=== PATIENT | female | born 1955 | race Caucasian/White ===

== ENCOUNTER 2019-07-21 01:48 | Outpatient (RCR) | payer OTHER, SELFPAY | END 2019-10-19 23:59 | disposition home or self-care (01) | LOC: ANHDMC 01:48 | PROVIDERS: PCP Family Medicine; Visit Provider Family Medicine | DX: R73.09 Other abnormal glucose (principal); Z71.89 Other specified counseling | CPT/HCPCS: 99199 ==

== ENCOUNTER 2020-02-15 14:01 | Outpatient (CLI) | payer OTHER, SELFPAY ==
--- NOTE | ~2020-02-15 | CT_ITS ---
EXAMINATION: CT lung screening DATE: 02/15/2020 15:37 INDICATION: Personal history of tobacco dependence, current smoker with 30 pack year history TECHNIQUE: Computed tomography (CT) of the chest was performed without intravenous contrast. The dose -length product (DLP) was 101.30 mGy-cm. Automated exposure control and iterative reconstruction tech [employer] were employed. COMPARISON: 11/06/2006 FINDINGS: Mild emphysema is noted. A 3 mm nodule in association with the minor fissure has the appear ance of a fissural lymph node. No suspicious pulmonary nodule is identified. There is no pleural effu kendra or pneumothorax. No pathologically enlarged thoracic lymph nodes are identified. The heart size is normal. A chronic sclerotic lesion is noted in the T9 vertebral body, unchanged since 2006. IMPRESSION: 1. Lung-RADS category 2: Benign appearance or behavior. Continue annual screening with noncontrast lo w-dose chest CT in 12 months. Reviewed, dictated and finalized at location A. IMPRESSION: 1. Lung-RADS category 2: Benign appearance or behavior. Continue annual screeni ng with noncontrast low-dose chest CT in 12 months.
--- NOTE | 2020-02-15 14:08 | ECHO_ITS ---
Patient Info Name: Seda Miramontes Age: 64 years : 1955 Gender: Female Ht: 63 in Wt: 190 lbs BSA: 1.99 m2 HR: 90 bpm BP: 129 / 96 mmHg Technical Quality: Good Exam Date: 02/15/2020 2:19 PM Exam Location: [facility] Patient Status: Outpatient Admit Date: 02/15/2020 Staff Ordering Physician: Chula Wray MD Manager Engagement: Presley Henderson, CHRIS, RT Attending Provider: Chula Wray MD Referring Physician: Kamala ROCA; Exam Type: CA echo doppler color flow Study Info Indications R06.02 - Shortness of breath Complete two-dimensional, color flow and Doppler transthoracic echocardiogram is performed. Summary 1. Left ventricular chamber dimension is normal. 2. Left ventricular systolic function is normal, estimated at 65-70%. 3. There is mildly increased left ventricular wall thickness. 4. The left ventricular diastolic function is grade I diastolic dysfunction. 5. E/e' 7 is not elevated. 6. Global longitudinal strain is slightly abnormal at -16.6%. 7. There is trace mitral valve regurgitation. Left Ventricle E/e' 7 is not elevated. Global longitudinal strain is slightly abnormal at -16.6%. Left ventricular chamber dimension is normal. Left ventricular systolic function is normal, estimated at 65-70%. There is mildly increased left ventricular wall thickness. The left ventricular diastolic function is grade I diastolic dysfunction. Right Ventricle Right ventricular chamber dimension is normal. Right ventricular systolic function is normal. Left Atria Left atrial chamber dimension is normal. Right Atria Right atrial chamber dimension is normal. Aortic Valve The aortic valve is trileaflet. There is no aortic valve stenosis. There is no aortic valve regurgitation. Pulmonic Valve There is no pulmonic regurgitation. Mitral Valve There is no mitral valve stenosis. There is trace mitral valve regurgitation. Tricuspid Valve There is no tricuspid valve regurgitation. Pericardium/Pleural There is no pericardial effusion. Inferior Vena Cava Normal inferior vena cava with >50% collapse upon inspiration consistent with normal right atrial pressure, 5 mmHg. Aorta The aortic root size at the sinus of Valsalva is normal. Left Ventricular Outflow Tract Name Value Normal LVOT 2D LVOT Diameter 1.9 cm LVOT Doppler LVOT Peak Gradient 5 mmHg LVOT Mean Gradient 3 mmHg LVOT VTI 19 cm LVOT VTI/AV VTI Ratio 1.0 LVOT Stroke Volume 52 ml LVOT CO 5.1 l/min LVOT CI 2.6 l/min/m2 Mitral Valve Name Value Normal MV Doppler MV Decel [place] 318 cm/s2 MV PHT 59 ms
--- NOTE | 2020-02-23 11:32 | WPDSIXMINUTE ---
Six Minute Walk Six Minute Walk: The patients O2 sats started at 96% and dropped as low as 93% Total walk distance 335.28 meters conclusion: This patient does not qualify for home oxygen therapy
== END 2020-02-15 14:02 | disposition home or self-care (01) ==
PROVIDERS: PCP Family Medicine; Visit Provider Internal Medicine Critical Care Medicine
DX: R06.02 Shortness of breath (principal); Z87.891 Personal history of nicotine dependence
CPT/HCPCS: 93306; 94618; G0297

== ENCOUNTER 2021-06-07 00:12 | Day surgery (SDC) | payer OTHER, SELFPAY ==
[2021-05-22 10:07] VITALS: BMI 33.7
--- NOTE | 2021-06-06 13:54 | PM.HPGS ---
History of Present Illness History of Present Illness Consent: Risks, benefits, and alternatives have been discussed and questions answered. Patient agrees to proceed with procedure. Chief complaint: neoplasm screening Narrative: Seda Miramontes is a 66 year old female Referred for colon cancer screening. Review of Systems Review of Systems: All systems reviewed & are unremarkable except as noted in HPI and below PMFSH Past Medical History Medical History COPD (chronic obstructive pulmonary disease) Depression Depression Essential tremor GERD (gastroesophageal reflux disease) History of tobacco abuse Hyperlipidemia Hypertension Prediabetes Rheumatoid arthritis involving both hands with negative rheumatoid factor (~2018) Shortness of Breath Thalassemia minor Tonsil stone Surgical History Surgical History H/O section H/O hernia repair H/O partial thyroidectomy Family History Family History Father Hypertension Dementia Diabetes mellitus Malignant neoplasm of prostate Grandparent CHF (congestive heart failure) Pancreatic cancer Emphysema lung Diabetes mellitus Mother Uterine cancer Dementia Macular degeneration Mother Family history of osteoporosis Family history of malignant neoplasm of uterus Family history of malignant neoplasm of ovary Father Hypertension Family history of diabetes mellitus in first degree relative Malignant neoplasm of prostate Diabetes mellitus Grandparent Family history of pancreatic cancer Family history of emphysema Diabetes mellitus Other Family history of cardiovascular disease Social History Social History Smoking packs per day: 1 Smoking cigarettes per day: 20.0 Years smoked: 35 Smoking pack-years: 35.00 Smoking status: Current every day smoker Tobacco type: cigarettes Smoking end date: 10/30/19 Alcohol intake: never Living arrangements: with family Spiritual care concerns: No Meds Home Medications and Allergies Home Medications Medication Instructions Recorded Confirmed Type albuterol sulfate 90 mcg/actuation 2 puff INHALATION Q4H PRN gm 07/20/19 06/07/21 History aerosol inhaler meclizine 12.5 mg tablet See Rx Instructions PO TID PRN #30 06/19/20 06/07/21 Rx tablet budesonide-formoterol HFA 160 2 puff INHALATION Q12H 90 Days 09/04/20 06/07/21 Rx mcg-4.5 mcg/actuation aerosol #30.6 g inhaler atorvastatin 20 mg tablet See Rx Instructions .ROUTE 01/22/21 06/07/21 Rx .COMPLEX #90 tablet cetirizine 10 mg tablet 10 mg PO DAILY PRN 02/08/21 06/07/21 History cholecalciferol (vitamin D3) 125 125 mcg PO DAILY 02/08/21 06/07/21 History mcg (5,000 unit) capsule docusate sodium 100 mg capsule 100 mg PO Q48H cap 02/08/21 06/07/21 History metformin 500 mg tablet 500 mg PO DAILY #90 tablet 03/25/21 06/07/21 Rx omeprazole 20 mg capsule,delayed 20 mg PO BID #180 cap 03/25/21 06/07/21 Rx release propranolol 40 mg tablet 40 mg PO Q12H #180 tablet 04/19/21 06/07/21 Rx bupropion HCl 150 mg PO BID 05/22/21 06/07/21 History duloxetine [Cymbalta] 60 mg PO DAILY 05/22/21 06/07/21 History multivitamin 1 tablet PO DAILY 05/22/21 06/07/21 History losartan 100 mg tablet 100 mg PO DAILY #90 tablet 05/24/21 06/07/21 Rx prednisone 20 mg tablet 20 mg PO BID #10 tablet 05/28/21 06/07/21 Rx Allergies Allergy/AdvReac Type Severity Reaction Status Date / Time Penicillins Allergy Unknown ? Verified 06/07/21 11:21 CHILD---???REACTION Exam Resp: Auscultation: clear to auscultation bilaterally Cardio: Rate: regular rate Rhythm: regular rhythm GI: GI Palp: Yes Soft to palpation and No Tenderness to palpation present (GI) Assessment and Plan Assessment and plan (1) Encounter for screening
[2021-06-07 11:27] VITALS: BP 126/82; PULSE 84; RESP 16; O2SAT 97
[2021-06-07] MEDS: LACTATED RINGERS 1,000 ML 150 ML IV CONT (11:38)
[2021-06-07 11:40] LABS: Glucose Point of Care 112 mg/dl (65-105)
--- NOTE | 2021-06-07 11:42 | WPDANESEPPF ---
Anes - Initial Pre Proc Eval Procedure: Operation Date: 06/07/21 12:30 Proposed Procedures p Screening Colonoscopy - Vickey Billy MD Date/Time: 06/07/21 11:42 Surgeon: Vickey Billy MD Pre Op Diagnosis: neoplasm screening Patient Data Age: 66 Gender: F Height: 1.6 m Weight: 83.4 kg Last Vital Signs Pulse 84 06/07/21 11:27 Resp 16 06/07/21 11:27 BP 126/82 06/07/21 11:27 Pulse Ox 97 06/07/21 11:27 Allergies Allergy/AdvReac Type Severity Reaction Status Date / Time Penicillins Allergy Unknown ? Verified 06/07/21 11:21 CHILD---???REACTION Home Medications Medication Instructions Recorded Confirmed Type albuterol sulfate 90 mcg/actuation 2 puff INHALATION Q4H PRN gm 07/20/19 06/07/21 History aerosol inhaler meclizine 12.5 mg tablet See Rx Instructions PO TID PRN #30 06/19/20 06/07/21 Rx tablet budesonide-formoterol HFA 160 2 puff INHALATION Q12H 90 Days 09/04/20 06/07/21 Rx mcg-4.5 mcg/actuation aerosol #30.6 g inhaler atorvastatin 20 mg tablet See Rx Instructions .ROUTE 01/22/21 06/07/21 Rx .COMPLEX #90 tablet cetirizine 10 mg tablet 10 mg PO DAILY PRN 02/08/21 06/07/21 History cholecalciferol (vitamin D3) 125 125 mcg PO DAILY 02/08/21 06/07/21 History mcg (5,000 unit) capsule docusate sodium 100 mg capsule 100 mg PO Q48H cap 02/08/21 06/07/21 History metformin 500 mg tablet 500 mg PO DAILY #90 tablet 03/25/21 06/07/21 Rx omeprazole 20 mg capsule,delayed 20 mg PO BID #180 cap 03/25/21 06/07/21 Rx release propranolol 40 mg tablet 40 mg PO Q12H #180 tablet 04/19/21 06/07/21 Rx bupropion HCl 150 mg PO BID 05/22/21 06/07/21 History duloxetine [Cymbalta] 60 mg PO DAILY 05/22/21 06/07/21 History multivitamin 1 tablet PO DAILY 05/22/21 06/07/21 History losartan 100 mg tablet 100 mg PO DAILY #90 tablet 05/24/21 06/07/21 Rx prednisone 20 mg tablet 20 mg PO BID #10 tablet 05/28/21 06/07/21 Rx Laboratory Tests 06/07/21 11:35 POC Capillary Glucose 112 mg/dl H mg/dl (65-105) Patient hx anesthesia problems: none Family hx anesthesia problems: none Results Review: All pre-operative results and documents have been reviewed as part of the pre-operative evaluation. [facility] Past Medical History Medical History COPD (chronic obstructive pulmonary disease) Depression Depression Essential tremor GERD (gastroesophageal reflux disease) History of tobacco abuse Hyperlipidemia Hypertension Prediabetes Rheumatoid arthritis involving both hands with negative rheumatoid factor (~2018) Shortness of Breath Thalassemia minor Tonsil stone Surgical History Surgical History H/O section H/O hernia repair H/O partial thyroidectomy Family History Family History Father Hypertension Dementia Diabetes mellitus Malignant neoplasm of prostate Grandparent CHF (congestive heart failure) Pancreatic cancer Emphysema lung Diabetes mellitus Mother Uterine cancer Dementia Macular degeneration Mother Family history of osteoporosis Family history of malignant neoplasm of uterus Family history of malignant neoplasm of ovary Father Hypertension Family history of diabetes mellitus in first degree relative Malignant neoplasm of prostate Diabetes mellitus Grandparent Family history of pancreatic cancer Family history of emphysema Diabetes mellitus Other Family history of cardiovascular disease Social History Social History Smoking packs per day: 1 Smoking cigarettes per day: 20.0 Years smoked: 35 Smoking pack-years: 35.00 Smoking status: Current every day smoker Tobacco type: cigarettes Smoking end date: 10/30/19 Alcohol intake: never Living arrangements: with family Spiritual care concerns: No
[2021-06-07 12:31] VITALS: BP 109/64; PULSE 73; RESP 22; O2SAT 97
[2021-06-07 12:41] VITALS: BP 107/68; PULSE 68; RESP 17; O2SAT 98
[2021-06-07 12:51] VITALS: BP 122/72; PULSE 62; RESP 16; O2SAT 98
== END 2021-06-07 13:25 | disposition home or self-care (01) ==
PROVIDERS: PCP Nurse Practitioner Family; Visit Provider Internal Medicine Gastroenterology
PROC: 0DJD8ZZ Inspection of Lower Intestinal Tract, Via Natural or Artificial Opening Endoscopic (ICD-10-PCS; CPT 45378; principal; 2021-06-07 12:30)
DX: Z12.11 Encounter for screening for malignant neoplasm of colon (principal); K64.8 Other hemorrhoids; K57.30 Diverticulosis of large intestine without perforation or abscess without bleeding; K63.5 Polyp of colon; Z79.51 Long term (current) use of inhaled steroids; J44.9 Chronic obstructive pulmonary disease, unspecified; F32.9 Major depressive disorder, single episode, unspecified; G25.0 Essential tremor; K21.9 Gastro-esophageal reflux disease without esophagitis; E78.49 Other hyperlipidemia; I10 Essential (primary) hypertension; R73.03 Prediabetes; M06.842 Other specified rheumatoid arthritis, left hand; M06.841 Other specified rheumatoid arthritis, right hand; D56.3 Thalassemia minor; F17.210 Nicotine dependence, cigarettes, uncomplicated; E66.9 Obesity, unspecified; Z68.30 Body mass index [BMI] 30.0-30.9, adult
CPT/HCPCS: 45385; 82948; 88305; J2704; J7120

== ENCOUNTER 2021-08-20 16:44 | Emergency (ER) | payer OTHER, SELFPAY ==
--- NOTE | ~2021-08-20 | XR_ITS ---
EXAMINATION: XR chest 2V DATE: 08/20/2021 17:35 INDICATION: 5 days of cough and shortness of breath TECHNIQUE: PA and lateral views of the chest were obtained. COMPARISON: Chest radiograph dated 10/21/[address] dated 02/15/2020 FINDINGS: Unchanged mild linear atelectasis/scarring at the bilateral lung bases. No new airspace opacities, pu lmonary edema, pleural effusion or pneumothorax. Heart size is normal. Tortuous thoracic aorta. Mild thoracic spondylosis. IMPRESSION: 1. Chronic mild bibasilar atelectasis/scarring. Reviewed, dictated and finalized at location H. ER OUT
--- NOTE | 2021-08-20 16:48 | ED.URI ---
HPI - URI/Sore Throat General Chief Complaint: Upper Respiratory Infection Stated Complaint: Congestion,Cough Time Seen by Provider: 08/20/21 17:25 Source: patient and RN notes reviewed Mode of arrival: ambulatory Limitations: no limitations History of Present Illness HPI Narrative: 66-year-old female with history of COPD and hypertension presents with concern for worsening cough and shortness of breath. Reports she has had cough, shortness of breath and wheezing that started 6 days ago. Reports she saw her primary care doctor who put her on a Z-Jasvir and a steroid. Reports she finished those today, however symptoms continue to get worse instead of better. Reports she usually feels better after 3 days on a steroid, however her symptoms are worsening. She has been vaccinated for Covid and flu, including Covid booster. She denies any known Covid or flu exposure. MD elicited complaint: cough Related Data Home Medications Medication Instructions Recorded Confirmed albuterol sulfate 90 mcg/actuation 2 puff INHALATION Q4H PRN gm 07/20/19 08/16/21 aerosol inhaler cetirizine 10 mg tablet 10 mg PO DAILY PRN 02/08/21 08/16/21 cholecalciferol (vitamin D3) 125 125 mcg PO DAILY 02/08/21 08/16/21 mcg (5,000 unit) capsule docusate sodium 100 mg capsule 100 mg PO Q48H cap 02/08/21 08/16/21 bupropion HCl 150 mg PO BID 05/22/21 08/16/21 multivitamin 1 tablet PO DAILY 05/22/21 08/16/21 Allergies Allergy/AdvReac Type Severity Reaction Status Date / Time Penicillins Allergy Unknown ? Verified 08/16/21 09:28 CHILD---???REACTION Review of Systems Review of Systems: CONSTITUTIONAL: Reports malaise. Chills, sweats, or fever. EYES: Denies visual changes, redness, or discharge. ENT: Denies rhinorrhea, congestion. Denies sinus pain, otalgia and sore throat. CARDIOVASCULAR: Denies chest pain, palpitations, or edema. RESPIRATORY: Reports cough, wheezing, dyspnea. GASTROINTESTINAL: Denies abdominal pain, nausea, vomiting, diarrhea SKIN: Denies rash or itching. MUSCULOSKELETAL: Denies myalgia. NEUROLOGIC: Denies headache. All systems reviewed & are unremarkable except as noted in HPI and below PMFSH Past Medical History Medical History COPD (chronic obstructive pulmonary disease) Depression Depression Essential tremor GERD (gastroesophageal reflux disease) History of tobacco abuse Hyperlipidemia Hypertension Prediabetes Rheumatoid arthritis involving both hands with negative rheumatoid factor (~2018) Shortness of Breath Thalassemia minor Tonsil stone Surgical History Surgical History H/O section H/O hernia repair H/O partial thyroidectomy Family History Family History Father Hypertension Dementia Diabetes mellitus Malignant neoplasm of prostate Grandparent CHF (congestive heart failure) Pancreatic cancer Emphysema lung Diabetes mellitus Mother Uterine cancer Dementia Macular degeneration Mother Family history of osteoporosis Family history of malignant neoplasm of uterus Family history of malignant neoplasm of ovary Father Hypertension Family history of diabetes mellitus in first degree relative Malignant neoplasm of prostate Diabetes mellitus Grandparent Family history of pancreatic cancer Family history of emphysema Diabetes mellitus Other Family history of cardiovascular disease Social History Social History Smoking packs per day: 1 Smoking cigarettes per day: 20.0 Years smoked: 35 Smoking pack-years: 35.00 Smoking status: Current every day smoker Tobacco type: cigarettes Smoking end date: 10/30/19 Alcohol intake: never Spiritual care concerns: No Comments At time of signature, agree with nursing past medical, surgical, social and famil
[2021-08-20 16:50] VITALS: BP 143/91; PULSE 92; RESP 20; TEMP 36.1; O2SAT 96
== END 2021-08-20 18:08 | disposition home or self-care (01) ==
PROVIDERS: Emergency Provider Nurse Practitioner; PCP Nurse Practitioner Family
DX: R06.00 Dyspnea, unspecified (principal); Z20.822 Contact with and (suspected) exposure to COVID-19; F17.210 Nicotine dependence, cigarettes, uncomplicated; J44.9 Chronic obstructive pulmonary disease, unspecified; K21.9 Gastro-esophageal reflux disease without esophagitis; E78.5 Hyperlipidemia, unspecified; I10 Essential (primary) hypertension; R73.03 Prediabetes; M06.9 Rheumatoid arthritis, unspecified; D56.3 Thalassemia minor; F32.A Depression, unspecified
CPT/HCPCS: 71046; 87426; 87804; 99213; C9803; G0463

== ENCOUNTER → 2023-01-12 12:05 | Outpatient (CLI) | payer OTHER, SELFPAY ==
--- NOTE | ~2023-01-12 | XR_ITS ---
XR chest 2V 01/12/2023 12:16 Indication: Cough Procedure: 2 view chest Comparison: Comparison to multiple prior studies sequentially, with oldest reviewed study dated 07/01. Findings: Bibasilar atelectasis. Heart size normal. No focal air space disease, pulmonary edema, pleu ral effusion or suspected pneumothorax. No acute osseous abnormality. Impression: 1: Bibasilar atelectasis. Reviewed, dictated and finalized at location B. Impression: 1: Bibasilar atelectasis.
== END ==
PROVIDERS: PCP Family Medicine; Visit Provider Nurse Practitioner Family
DX: J98.11 Atelectasis (principal)
CPT/HCPCS: 71046

== ENCOUNTER 2023-03-26 11:37 | Outpatient (CLI) | payer OTHER, SELFPAY ==
[2023-03-26 13:26] LABS: Uric Acid 4.6 mg/dL (2.5-7.5)
== END 2023-03-26 11:38 | disposition home or self-care (01) ==
LOC: ANHGOSHLAB 11:38
PROVIDERS: PCP Family Medicine; Visit Provider Nurse Practitioner Family
DX: E78.5 Hyperlipidemia, unspecified (principal); R73.03 Prediabetes; F32.A Depression, unspecified; E55.9 Vitamin D deficiency, unspecified; I10 Essential (primary) hypertension; M10.9 Gout, unspecified
CPT/HCPCS: 36415; 84550

== ENCOUNTER → 2023-06-23 11:48 | Outpatient (CLI) | payer OTHER, SELFPAY ==
--- NOTE | ~2023-06-23 | XR_ITS ---
EXAMINATION: XR chest 2V 06/23/2023 12:02 INDICATION: Cough and shortness of breath PROCEDURE: 2 view chest COMPARISON: Comparison to multiple prior studies sequentially, with oldest reviewed study dated 03/25. FINDINGS: The lungs are clear. The cardiomediastinal silhouette is within normal limits. There are no pleural effusions. There is no pneumothorax suspected. There is atherosclerosis and ectasia of t he aorta. IMPRESSION: 1: NO ACUTE CARDIOPULMONARY DISEASE. Reviewed, dictated and finalized at location L.
== END ==
PROVIDERS: PCP Nurse Practitioner; Visit Provider Nurse Practitioner
DX: R06.02 Shortness of breath (principal); R05.9 Cough, unspecified
CPT/HCPCS: 71046

== ENCOUNTER 2023-07-09 10:52 | Inpatient (IN) | payer MEDICARE, OTHER, SELFPAY ==
[2023-07-09] VITALS (29 sets, daily range): BP systolic 118–149; BP diastolic 73–95; PULSE 86–104; RESP 13–27; TEMP 36.4–36.9; O2SAT 91–99; BMI 34.0
--- NOTE | ~2023-07-09 | XR_ITS ---
EXAMINATION: XR chest 1V portable INDICATION: Cough and shortness of breath TECHNIQUE: Portable AP chest at 1224 hours COMPARISON: 06/23/2023 FINDINGS: There are minimal airspace opacities of the left midlung zone. No pleural effusion or pneum othorax. The cardiomediastinal silhouette is stable. IMPRESSION: 1. Minimal airspace opacities of the left midlung zone, likely atelectasis. Reviewed, dictated and finalized at location L. RNAL COMMUNICATIONS WRITER
[2023-07-09] MEDS: ALBUTEROL SULFATE NEB 2.5 MG/3 ML INH 15 MG INHALATION (11:42)
[2023-07-09] MEDS: IPRATROPIUM BR 0.02% INH SOLN 0.5 MG/2.5 ML VIAL 1.5 MG INHALATION (11:42)
[2023-07-09 11:54] LABS: Basophils Absolute Auto 0.1 K/mm3 (0.0-0.1); Basophils Percent Auto 0.9 % (0.2-1.2); Eosinophils Absolute Auto 0.4 K/mm3 (0-0.3); Eosinophils Percent Auto 4.8 % (0-4.4); Hematocrit 37.4 % (37.0-47.0); Hemoglobin 11.5 g/dL (12.0-15.0); Immature Granulocyte Absolute 0.04 K/mm3 (0.00-0.031); Immature Granulocyte Percent A 0.4 % (0-0.5); Lymphocytes Absolute Auto 1.53 K/mm3 (0.9-3.2); Lymphocytes Percent Auto 16.9 % (18.3-44.2); Mean Corpuscular HGB Conc 30.7 g/dl (32-36); Mean Corpuscular Hemoglobin 21.1 pg (26-34); Mean Corpuscular Volume 68.6 fl (80-100); Mean Platelet Volume 9.5 fl (7.4-10.4); Monocytes Absolute Auto 0.9 K/mm3 (0.1-0.6); Monocytes Percent Auto 9.9 % (2.6-8.5); Neutrophils Absolute Auto 6.1 K/mm3 (1.3-6.7); Neutrophils Percent Auto 67.1 % (45.5-73.1); Platelet Count Result 288 k/mm3 (150-375); Red Blood Count 5.45 M/mm3 (4.2-5.4); Red Cell Distribution Width 18.5 % (11.5-14.5)
[2023-07-09 12:04] LABS: Alanine Aminotransferase 34 U/L (6-35); Albumin Level 4.3 g/dL (3.5-5.1); Alkaline Phosphatase 96 U/L (38-126); Anion Gap 4 mmol/L (8-16); Aspartate Amino Transferase 35 U/L (14-36); Bilirubin,Total 0.8 mg/dL (0.2-1.3); Blood Urea Nitrogen 19 mg/dL (7-17); Calcium 9.2 mg/dL (8.4-10.2); Carbon Dioxide 31 mmol/L (22-30); Chloride 101 mmol/L (98-107); Estimated CRCL calculation 56 ml/min; Estimated Glomerular Filt Rate > 60; Glucose 95 mg/dL (65-110); Potassium 4.1 mmol/L (3.4-5.0); Sodium 136 mmol/L (137-145)
[2023-07-09 12:11] LABS: Ovalocytes 1+ (NORMAL); Platelet Estimate Adequate (Adequate); Schistocytes None Seen (NORMAL); Target Cells 1+ (NORMAL)
[2023-07-09 12:30] LABS: Influenza A QL RT-PCR Negative (Negative); Influenza B QL RT-PCR Negative (Negative); RSV RNA, RT-PCR Negative (Negative); SARS-CoV-2 RNA PCR Positive (Negative)
--- NOTE | 2023-07-09 13:36 | ED.SOB ---
HPI - SOB/Dyspnea General Chief Complaint: Shortness of Breath/Dyspnea Stated Complaint: CANT BREATH Time Seen by Provider: 07/09/23 11:00 History of Present Illness HPI Narrative: Patient is a 68-year-old female who presents ER with shortness of breath and frequent coughing. Patient reports over the last couple weeks she has had multiple issues with her breathing. She has known COPD. She has been on several rounds of steroids and has also been on a Z-Jasvir. She was around her grandchildren 6 days ago and they had upper respiratory illnesses. Over the last 2 days she has developed body aches with cough and shortness of breath. She had a low-grade fever today. She took a home COVID test which was negative. Related Data Home Medications Medication Instructions Recorded Confirmed albuterol sulfate 90 mcg/actuation 2 puff inhalation Q4H PRN Dyspnea 07/20/19 06/23/23 aerosol inhaler (ProAir HFA) docusate sodium 100 mg capsule 100 mg PO Q48H 02/08/21 06/23/23 (Stool Softener) multivitamin 1 tablet PO DAILY 05/22/21 06/23/23 loratadine 10 mg tablet 10 mg PO DAILY 08/26/22 06/23/23 Allergies Allergy/AdvReac Type Severity Reaction Status Date / Time Penicillins Allergy Unknown unknown- Verified 06/23/23 11:15 allergic since childhood Review of Systems Review of Systems: All systems reviewed & are unremarkable except as noted in HPI and below Constitutional: Constitutional: Denies chills, Reports fatigue and Reports fever(s) ENT: Denies nasal congestion and Reports sore throat Cardiovascular: Cardiovascular: Reports no additional cardiovascular complaints Respiratory: Respiratory: Reports cough, Reports dyspnea and Reports wheezing Gastrointestinal: Gastrointestinal: Reports no additional gastrointestinal complaints Genitourinary: Genitourinary: Reports no additional female genitourinary complaints [facility] Past Medical History Medical History Allergies Anxiety Arthritis Arthritis of right acromioclavicular joint COPD (chronic obstructive pulmonary disease) Depression Essential tremor GERD (gastroesophageal reflux disease) Hyperlipidemia Hypertension Prediabetes Rheumatoid arthritis involving both hands with negative rheumatoid factor (~2018) Shortness of Breath Subacromial impingement of right shoulder Thalassemia Thalassemia minor Tonsil stone Surgical History Surgical History H/O section H/O hernia repair H/O partial thyroidectomy Family History Family History Father Hypertension Dementia Diabetes mellitus Grandparent CHF (congestive heart failure) Pancreatic cancer Emphysema lung Diabetes mellitus Mother Uterine cancer Dementia Macular degeneration Mother Family history of osteoporosis Family history of malignant neoplasm of uterus Family history of malignant neoplasm of ovary Father Family history of diabetes mellitus in first degree relative Malignant neoplasm of prostate Diabetes mellitus Cerebrovascular accident Grandparent Family history of pancreatic cancer Family history of emphysema Diabetes mellitus Other Family history of cardiovascular disease Social History Social History Social History: Caffeine-tea Smoking packs per day: 1 Smoking cigarettes per day: 20.0 Years smoked: 40 Smoking pack-years: 40.00 Smoking status: Current every day smoker Tobacco type: cigarettes Alcohol intake: current Alcohol use details: rarely-wine Substance use: never Substance use type: does not use Lack of Transportation: No Lack of Food: Never True Current Housing: I Have Housing Concerned About Future Housing: No Difficulty Paying Gas/Electric Bills: No Difficulty Paying for Meds: No Current
--- NOTE | 2023-07-09 13:39 | PC.NURSE ---
pt ambulated with without assistance and O2 sat. dropped to 89% while walking on room air. no further orders at this time
--- NOTE | 2023-07-09 16:39 | PM.IMHP ---
H&P: HPI History of Present Illness Date/Time: 07/09/23 16:39 Chief Complaint: Cough, SOB Narrative: 68 y/o F presents here with SOB and cough with PMH of COPD, current smoker, deppres/anx, essential tremor, GERD, HTN, HLD, RA, and thalassemia. Patient reports that 2 days ago she began experiencing coughingand mild shortness of breath, symptoms not consistent with her typical COPD exacerbation (sputum production). States that the coughing episodes would last so long that she would become very short of breath. Shortness of breath worsened today, having difficult time tolerating activity. Also developed low-grade fever, body aches, and cough is dry. Mild body aches primarily and shoulders that exists exasperated by coughing. Denies nausea, vomiting, diarrhea. Family members who work in healthcare had 6 children, family and patient have been testing for COVID and had been negative up until the patient tested positive today. Patient currently still smokes, 0.5 ppd for approximately 30 years. Is considering cessation. Last COPD exacerbation approximately 3 weeks ago, was placed on Z-Jasvir and had 2 rounds of oral steroids. Symptoms had completely resolved prior to recent onset of symptoms. Review of Systems Review of Systems: All systems reviewed & are unremarkable except as noted in HPI and below PMFSH Past Medical History Medical History Allergies Anxiety Arthritis Arthritis of right acromioclavicular joint COPD (chronic obstructive pulmonary disease) Depression Essential tremor GERD (gastroesophageal reflux disease) Hyperlipidemia Hypertension Prediabetes Rheumatoid arthritis involving both hands with negative rheumatoid factor (~2018) Shortness of Breath Subacromial impingement of right shoulder Thalassemia Thalassemia minor Tonsil stone Surgical History Surgical History H/O section H/O hernia repair H/O partial thyroidectomy Family History Family History Father Diabetes mellitus Dementia Hypertension Grandparent Pancreatic cancer Diabetes mellitus CHF (congestive heart failure) Emphysema lung Mother Dementia Macular degeneration Uterine cancer Mother Family history of malignant neoplasm of ovary Family history of osteoporosis Family history of malignant neoplasm of uterus Father Malignant neoplasm of prostate Family history of diabetes mellitus in first degree relative Cerebrovascular accident Grandparent Diabetes mellitus Family history of emphysema Family history of pancreatic cancer Other Family history of cardiovascular disease Social History Social History (Updated 07/10/23 @ 00:14 by Olivia Washington APRN) Social History: Caffeine-tea Currently lives at home with her . Surrogate decisionmaker: Nate Miramontes, may also call her daughter Silva Mehta. Code Status: DNR. Smoking packs per day: 0.5 Smoking cigarettes per day: 10.0 Years smoked: 40 Smoking pack-years: 20.00 Smoking status: Current every day smoker Alcohol intake: current Alcohol use details: rarely-wine Substance use: never Substance use type: does not use Other substance usage details: social drinker Lack of Transportation: No Lack of Food: Never True Current Housing: I Have Housing Concerned About Future Housing: No Difficulty Paying Gas/Electric Bills: No Difficulty Paying for Meds: No Currently Unemployed: No Education: High School Diploma/GED Difficulty w/ Childcare or Family Care: No Living arrangements: with family Occupation/Education: retired Gender identity (if verbalized by the patient): Female Spiritual care concerns: No Meds Home Medications and Allergies Home Medications Medication Instructions Recorded Confirmed Type albuterol kendrick
--- NOTE | 2023-07-09 17:42 | ADMGEN ---
This patient, Seda Miramontes, was admitted to 3 [facility] Surg Room 311-01. Patient/family oriented to hospital policies and general routines including ID bracelet, bed and alarms, visiting hours, pain management, procedures, bathroom and other care routines, personal items, smoking policy, room service/diet, and visiting hours. Information on how to activate the Rapid Response Team has been discussed. Patient/Family are encouraged to report perceived risks to care and to ask questions if they do not understand what they are told or what they should do.
[2023-07-09] MEDS: REMDESIVIR 200 MG/NS 250 ML 200 MG/250 ML BAG 250 MG IVPB (21:05)
[2023-07-09] MEDS: amLODIPine BESYLATE 5 MG TABLET PO (21:07)
[2023-07-09] MEDS: LORATADINE 10 MG TABLET PO (21:07)
[2023-07-09] MEDS: ATORVASTATIN 20 MG TABLET PO (21:07)
[2023-07-09] MEDS: HEPARIN SODIUM 5,000 UNITS/ML VIAL 5000 UNITS SUB-Q (21:09)
[2023-07-09] MEDS: PROPRANOLOL HCL 60 MG CAPSULE CR PO (21:09)
[2023-07-09] MEDS: buPROPion HCL XL (24 HR) 150 MG TABCR PO (21:11)
[2023-07-09] MEDS: DULoxetine HCL 60 MG CAPSULE.DR PO (21:12)
[2023-07-09] MEDS: CHOLECALCIFEROL 1,000 UNITS TABLET 5000 UNITS PO (21:22)
[2023-07-09] MEDS: DOCUSATE SODIUM LIQ 100 MG/10 ML UDC 250 MG PO (21:22)
[2023-07-09] MEDS: ALBUTEROL SULFATE NEB 2.5 MG/3 ML INH INHALATION (22:04)
[2023-07-09] MEDS: IPRATROPIUM BR 0.02% INH SOLN 0.5 MG/2.5 ML VIAL INHALATION (22:04)
[2023-07-10] VITALS (17 sets, daily range): BP systolic 114–148; BP diastolic 65–80; PULSE 77–99; RESP 14–28; TEMP 36–36.8; O2SAT 94–99
[2023-07-10 07:46] LABS: INR 0.9; Prothrombin Time 12.6 Seconds (11.1-14.7)
[2023-07-10 07:47] LABS: Basophils Percent Auto 0.2 % (0.2-1.2); Hematocrit 37.3 % (37.0-47.0); Hemoglobin 11.6 g/dL (12.0-15.0); Immature Granulocyte Absolute 0.02 K/mm3 (0.00-0.031); Immature Granulocyte Percent A 0.3 % (0-0.5); Lymphocytes Absolute Auto 1.34 K/mm3 (0.9-3.2); Lymphocytes Percent Auto 23.3 % (18.3-44.2); Mean Corpuscular HGB Conc 31.1 g/dl (32-36); Mean Corpuscular Hemoglobin 21.1 pg (26-34); Mean Corpuscular Volume 67.7 fl (80-100); Mean Platelet Volume 9.3 fl (7.4-10.4); Monocytes Absolute Auto 0.5 K/mm3 (0.1-0.6); Monocytes Percent Auto 7.8 % (2.6-8.5); Neutrophils Absolute Auto 3.9 K/mm3 (1.3-6.7); Neutrophils Percent Auto 68.4 % (45.5-73.1); Platelet Count Result 313 k/mm3 (150-375); Red Blood Count 5.51 M/mm3 (4.2-5.4); Red Cell Distribution Width 18.3 % (11.5-14.5); White Blood Count 5.7 K/mm3 (4.5-10.0)
[2023-07-10 07:52] LABS: Anion Gap 9 mmol/L (8-16); Blood Urea Nitrogen 17 mg/dL (7-17); Calcium 9.4 mg/dL (8.4-10.2); Carbon Dioxide 27 mmol/L (22-30); Chloride 103 mmol/L (98-107); Estimated CRCL calculation 63 ml/min; Estimated Glomerular Filt Rate > 60; Glucose 110 mg/dL (65-110); Potassium 4.3 mmol/L (3.4-5.0); Sodium 139 mmol/L (137-145)
[2023-07-10] MEDS: BENZONATATE 100 MG CAPSULE PO ×3 (09:01→18:24)
[2023-07-10] MEDS: ACETAMINOPHEN 325 MG TABLET 650 MG PO ×3 (09:03→18:22)
[2023-07-10] MEDS: NICOTINE (*PBKC) 14 MG PATCH 1 PATCH TRANSDERM (09:16)
[2023-07-10 09:26] LABS: Platelet Estimate Adequate (Adequate)
[2023-07-10 09:27] LABS: Ovalocytes 1+ (NORMAL); Schistocytes None Seen (NORMAL); Target Cells 1+ (NORMAL)
--- NOTE | 2023-07-10 12:17 | PC.NURSE ---
1217 called Zina, patients sister to give update. No answer. left VM
[2023-07-10] MEDS: ALBUTEROL SULFATE NEB 2.5 MG/3 ML INH INHALATION ×3 (13:20→19:52)
[2023-07-10] MEDS: IPRATROPIUM BR 0.02% INH SOLN 0.5 MG/2.5 ML VIAL INHALATION ×3 (13:20→19:52)
--- NOTE | 2023-07-10 13:27 | PM.IMPN ---
Progress Note: A&P Assessment and Plan (1) COVID: Code(s): U07.1 - COVID-19 Status: Acute Assessment and Plan: Patient presented with fatigue, shortness of breath, malaise and dry hacking cough. tested positive for COVID on - 07/09 CXR: ?Minimal airspace opacities of the left midlung zone, likely atelectasis. Remdesivir 200 mg IVPB x1 then 100 mg x4 for 5 total doses. Add dexamethasone 6 mg x10 days or until d/c. Patient on nebulizers at home, would benefit from Duo nebs - albuterol/Atrovent Q4H scheduled Tessalon Perles prn (2) Hypoxia: Code(s): R09.02 - Hypoxemia Status: Acute Assessment and Plan: Likely secondary to COVID Continue supplemental oxygen, wean as as tolerated. Nebulizers - Atrovent and albuterol q.4 (3) Hypertension: Qualifiers: Hypertension type: essential hypertension Qualified Code(s): I10 - Essential (primary) hypertension Code(s): I10 - Essential (primary) hypertension Status: Acute Assessment and Plan: Continue losartan, amlodipine, propranolol. Monitor BP. Plan Nicotine patch PRN Subjective Date/time seen: 07/10/23 13:27 Interval history: Patient continues to have shortness of breath and dry cough. While talking to me patient is having some labored breathing and shortness of breath while talking. She does have nebulizers at home and is concerned that she is not getting in and here in the hospital. Have since ordered nebulizer treatments scheduled for her here in the hospital. I think she would highly benefit from them. She will be continued on remdesivir and dexamethasone treatments while in the hospital. Advised nurse to walker and measure oxygen saturation while up. Patient could benefit from a 1-2 L of oxygen. Encourage her to use oxygen if it is put on. Answered all of patient's questions to the best of my ability. Exam Narrative: GENERAL: Comfortable, increased respiratory effort with talking, labored breathing. HENMT: moist mucous membranes EYES: EOM intact b/l NECK: no lymphadenopathy RESPIRATORY: diffuse expiratory wheezes and crackles CARDIO: RRR GI: soft, nontender, bowel sounds present SKIN: no rashes EXTREMITIES: no edema, redness or tenderness Objective Data Vital Signs Vital Signs: Vital Signs - 24 hr 07/09/23 13:56 07/09/23 14:30 07/09/23 14:09 Temperature Pulse Rate 96 Respiratory Rate 22 H Blood Pressure 129/82 Pulse Oximetry 93 92 Oxygen Delivery Room Air 07/09/23 15:04 07/09/23 15:15 07/09/23 15:16 Temperature Pulse Rate 91 92 90 Respiratory Rate 27 H 19 15 Blood Pressure 130/76 Pulse Oximetry 91 94 93 Oxygen Delivery 07/09/23 15:17 07/09/23 15:52 07/09/23 16:00 Temperature Pulse Rate 90 95 95 Respiratory Rate 18 21 H 22 H Blood Pressure Pulse Oximetry 93 92 91 Oxygen Delivery 07/09/23 16:01 07/09/23 16:02 07/09/23 18:16 Temperature Pulse Rate 97 96 Respiratory Rate 27 H 23 H Blood Pressure 128/82 Pulse Oximetry 91 91 Oxygen Delivery Room Air 07/09/23 21:09 07/09/23 20:00 07/09/23 22:07 Temperature 97.6 F Pulse Rate 92 104 H 92 Respiratory Rate 22 H 20 Blood Pressure 118/73 Pulse Oximetry 95 Oxygen Delivery 07/09/23 22:15 07/10/23 00:00 07/09/23 20:15 Temperature 97.4 F L Pulse Rate 93 99 99 Respiratory Rate 20 20 20 Blood Pressure 121/80 Pulse Oximetry 96 96 Oxygen Delivery Room Air 07/10/23 04:00 07/10/23 08:15 07/10/23 08:15 Temperature 97.3 F L Pulse Rate 77 88 88 Respiratory Rate 20 20 20 Blood Pressure 114/70 Pulse Oximetry 96 96 Oxygen Delivery Room Air 07/10/23 08:25 07/10/23 08:58 Temperature 96.8 F L Pulse Rate 92 86 Respiratory Rate 20 20 Blood Pressure 145/78 H Pulse Oximetry 95 Oxygen Delivery Intake/Output Intake/Output: Intake & Output 07/07/23 07/08/23 07/09/23 07/10/23 23:59 23:59 23:59 23:
[2023-07-10] MEDS: buPROPion HCL XL (24 HR) 150 MG TABCR PO (21:44)
[2023-07-10] MEDS: CHOLECALCIFEROL 1,000 UNITS TABLET 5000 UNITS PO (21:44)
[2023-07-10] MEDS: DULoxetine HCL 60 MG CAPSULE.DR PO (21:45)
[2023-07-10] MEDS: amLODIPine BESYLATE 5 MG TABLET PO (21:45)
[2023-07-10] MEDS: HEPARIN SODIUM 5,000 UNITS/ML VIAL 5000 UNITS SUB-Q (21:45)
[2023-07-10] MEDS: LORATADINE 10 MG TABLET PO (21:45)
[2023-07-10] MEDS: ATORVASTATIN 20 MG TABLET PO (21:45)
[2023-07-10] MEDS: REMDESIVIR 100 MG/NS 250 ML 100 MG/250 ML BAG 250 MG IVPB (21:53)
[2023-07-10] MEDS: PROPRANOLOL HCL 60 MG CAPSULE CR PO (21:53)
[2023-07-11] VITALS (20 sets, daily range): BP systolic 107–136; BP diastolic 68–82; PULSE 72–87; RESP 18–26; TEMP 36.2–36.9; O2SAT 92–99
[2023-07-11] MEDS: IPRATROPIUM BR 0.02% INH SOLN 0.5 MG/2.5 ML VIAL INHALATION ×7 (01:05→23:51)
[2023-07-11] MEDS: ALBUTEROL SULFATE NEB 2.5 MG/3 ML INH INHALATION ×7 (01:05→23:51)
[2023-07-11] MEDS: LOSARTAN POTASSIUM 100 MG TABLET PO (09:35)
[2023-07-11] MEDS: ACETAMINOPHEN 325 MG TABLET 650 MG PO ×3 (09:35→17:32)
[2023-07-11] MEDS: PANTOPRAZOLE 40 MG TABLET PO (09:36)
[2023-07-11] MEDS: MULTIVITAMINS THERAPEUTIC TAB (*BKC) 1 TABLET PO (09:36)
[2023-07-11] MEDS: BENZONATATE 100 MG CAPSULE PO ×3 (09:36→17:33)
[2023-07-11] MEDS: NICOTINE (*PBKC) 14 MG PATCH 1 PATCH TRANSDERM (09:41)
--- NOTE | 2023-07-11 14:23 | PM.IMPN ---
Progress Note: A&P Assessment and Plan (1) COVID: Code(s): U07.1 - COVID-19 Status: Acute Assessment and Plan: Patient presented with fatigue, shortness of breath, malaise and dry hacking cough. tested positive for COVID on - 07/09 CXR: ?Minimal airspace opacities of the left midlung zone, likely atelectasis. Remdesivir 200 mg IVPB x1 then 100 mg x4 for 5 total doses. Add dexamethasone 6 mg x10 days or until d/c. Patient on nebulizers at home, would benefit from Duo nebs - albuterol/Atrovent Q4H scheduled Tessalon Perles prn Mucinex scheduled (2) Hypoxia: Code(s): R09.02 - Hypoxemia Status: Acute Assessment and Plan: Likely secondary to COVID Continue supplemental oxygen, wean as as tolerated. Nebulizers - Atrovent and albuterol q.4 (3) Hypertension: Qualifiers: Hypertension type: essential hypertension Qualified Code(s): I10 - Essential (primary) hypertension Code(s): I10 - Essential (primary) hypertension Status: Acute Assessment and Plan: Continue losartan, amlodipine, propranolol. Monitor BP. Plan Nicotine patch PRN Subjective Date/time seen: 07/11/23 14:23 Interval history: patient is breathing much more easily today. She is able to complete sentences without becoming short of breath. Discussed with nurse then she walked patient yesterday and oxygen remained above 90%. She is still short of breath but markedly better than yesterday. Will continue with remdesivir and steroids. Patient is still wheezing with diffuse crackles but much less than yesterday. Will continue to monitor her. Continue with nebulizer treatments. Answered all of patient's questions to the best of my ability. Exam Narrative: GENERAL: Comfortable, no acute distress HENMT: moist mucous membranes EYES: EOM intact b/l NECK: no lymphadenopathy RESPIRATORY: diffuse expiratory wheezes and crackles CARDIO: RRR GI: soft, nontender, bowel sounds present SKIN: no rashes EXTREMITIES: no edema, redness or tenderness Objective Data Vital Signs Vital Signs: Vital Signs - 24 hr 07/10/23 15:59 07/10/23 16:12 07/10/23 18:00 Temperature 98.2 F Pulse Rate 87 86 90 Respiratory Rate 20 18 14 Blood Pressure 148/65 H Pulse Oximetry 95 Oxygen Delivery 07/10/23 19:53 07/10/23 19:56 07/10/23 20:01 Temperature Pulse Rate 83 83 85 Respiratory Rate 18 20 18 Blood Pressure Pulse Oximetry 99 Oxygen Delivery Room Air 07/10/23 20:46 07/10/23 21:53 07/10/23 22:05 Temperature 97.6 F Pulse Rate 86 86 Respiratory Rate 16 Blood Pressure 129/76 Pulse Oximetry 94 Oxygen Delivery Room Air 07/10/23 23:52 07/11/23 01:05 07/11/23 01:15 Temperature 97.4 F L Pulse Rate 92 83 Respiratory Rate 28 H 18 18 Blood Pressure 123/79 Pulse Oximetry 96 Oxygen Delivery 07/11/23 04:00 07/11/23 04:51 07/11/23 04:58 Temperature 97.4 F L Pulse Rate 77 79 82 Respiratory Rate 18 18 18 Blood Pressure 126/78 Pulse Oximetry 92 Oxygen Delivery 07/11/23 07:30 07/11/23 07:30 07/11/23 07:43 Temperature Pulse Rate 73 73 76 Respiratory Rate 18 20 18 Blood Pressure Pulse Oximetry 99 Oxygen Delivery Room Air 07/11/23 08:00 07/11/23 11:25 07/11/23 07:55 Temperature 98.5 F Pulse Rate 82 72 82 Respiratory Rate 20 18 18 Blood Pressure 133/82 Pulse Oximetry 97 Oxygen Delivery 07/11/23 12:00 07/11/23 08:00 Temperature 98.1 F Pulse Rate 79 Respiratory Rate 20 Blood Pressure 107/68 Pulse Oximetry 93 Oxygen Delivery Room Air Intake/Output Intake/Output: Intake & Output 07/08/23 07/09/23 07/10/23 07/11/23 23:59 23:59 23:59 23:59 Intake Total 2540 240 Balance 2540 240 Meds/Results Medications: Active Medications Generic Name Dose Route Start Last Admin Trade Name Freq PRN Reason Stop Dose Admin Acetaminophen 650 mg 07/09/23 14:
[2023-07-11] MEDS: guaiFENesin 600 MG/DEXTROMETHORPHAN 30 MG SR TAB 12 HR 1 TAB PO ×2 (17:32→22:38)
[2023-07-11] MEDS: REMDESIVIR 100 MG/NS 250 ML 100 MG/250 ML BAG 250 MG IVPB (22:36)
[2023-07-11] MEDS: LORATADINE 10 MG TABLET PO (22:37)
[2023-07-11] MEDS: PROPRANOLOL HCL 60 MG CAPSULE CR PO (22:37)
[2023-07-11] MEDS: buPROPion HCL XL (24 HR) 150 MG TABCR PO (22:37)
[2023-07-11] MEDS: ATORVASTATIN 20 MG TABLET PO (22:37)
[2023-07-11] MEDS: DULoxetine HCL 60 MG CAPSULE.DR PO (22:37)
[2023-07-11] MEDS: HEPARIN SODIUM 5,000 UNITS/ML VIAL 5000 UNITS SUB-Q (22:38)
[2023-07-11] MEDS: CHOLECALCIFEROL 1,000 UNITS TABLET 5000 UNITS PO (22:38)
[2023-07-11] MEDS: amLODIPine BESYLATE 5 MG TABLET PO (22:38)
[2023-07-11] MEDS: BENZOCAINE/MENTHOL (*BKC) 18 EA LOZENGE 1 LOZENGE PO (22:44)
[2023-07-12] VITALS (18 sets, daily range): BP systolic 100–132; BP diastolic 63–75; PULSE 73–90; RESP 16–24; TEMP 36–36.9; O2SAT 94–97
[2023-07-12] MEDS: ALBUTEROL SULFATE NEB 2.5 MG/3 ML INH INHALATION ×5 (07:51→23:13)
[2023-07-12] MEDS: IPRATROPIUM BR 0.02% INH SOLN 0.5 MG/2.5 ML VIAL INHALATION ×5 (07:51→23:13)
[2023-07-12 08:02] LABS: INR 0.9; Prothrombin Time 12.3 Seconds (11.1-14.7)
[2023-07-12 08:04] LABS: Alanine Aminotransferase 32 U/L (6-35); Albumin Level 4.4 g/dL (3.5-5.1); Alkaline Phosphatase 82 U/L (38-126); Aspartate Amino Transferase 28 U/L (14-36); Bilirubin,Total 0.7 mg/dL (0.2-1.3)
[2023-07-12] MEDS: HEPARIN SODIUM 5,000 UNITS/ML VIAL 5000 UNITS SUB-Q ×2 (09:07→21:07)
[2023-07-12] MEDS: PANTOPRAZOLE 40 MG TABLET PO (09:07)
[2023-07-12] MEDS: guaiFENesin 600 MG/DEXTROMETHORPHAN 30 MG SR TAB 12 HR 1 TAB PO ×2 (09:07→21:08)
[2023-07-12] MEDS: NICOTINE (*PBKC) 14 MG PATCH 1 PATCH TRANSDERM (09:07)
[2023-07-12] MEDS: LOSARTAN POTASSIUM 100 MG TABLET PO (09:08)
[2023-07-12] MEDS: BENZONATATE 100 MG CAPSULE PO (09:08)
[2023-07-12] MEDS: MULTIVITAMINS THERAPEUTIC TAB (*BKC) 1 TABLET PO (09:08)
--- NOTE | 2023-07-12 11:57 | PM.IMPN ---
Progress Note: A&P Assessment and Plan (1) COVID: Code(s): U07.1 - COVID-19 Status: Acute Assessment and Plan: Patient presented with fatigue, shortness of breath, malaise and dry hacking cough. tested positive for COVID on - 07/09 CXR: ?Minimal airspace opacities of the left midlung zone, likely atelectasis. Remdesivir 200 mg IVPB x1 then 100 mg x4 for 5 total doses. Add dexamethasone 6 mg x10 days or until d/c. Patient on nebulizers at home, would benefit from Duo nebs - albuterol/Atrovent Q4H scheduled Tessalon Perles prn Mucinex scheduled (2) Hypoxia: Code(s): R09.02 - Hypoxemia Status: Acute Assessment and Plan: Likely secondary to COVID Continue supplemental oxygen, wean as as tolerated. Nebulizers - Atrovent and albuterol q.4 (3) Hypertension: Qualifiers: Hypertension type: essential hypertension Qualified Code(s): I10 - Essential (primary) hypertension Code(s): I10 - Essential (primary) hypertension Status: Acute Assessment and Plan: Continue losartan, amlodipine, propranolol. Monitor BP. Plan Nicotine patch PRN Subjective Date/time seen: 07/12/23 11:57 Interval history: Patient continued to have some shortness of breath. I feel as if she would benefit from a full 5 days of remdesivir. This was discussed with the patient. Her breath sounds have improved but she is still wheezing. She has a very dry aggravating cough. Will increase her benzonatate. Exam Narrative: GENERAL: Comfortable, no acute distress HENMT: moist mucous membranes EYES: EOM intact b/l NECK: no lymphadenopathy RESPIRATORY: diffuse expiratory wheezes CARDIO: RRR GI: soft, nontender, bowel sounds present SKIN: no rashes EXTREMITIES: no edema, redness or tenderness Objective Data Vital Signs Vital Signs: Vital Signs - 24 hr 07/11/23 12:00 07/11/23 16:10 07/11/23 16:21 Temperature 98.1 F Pulse Rate 79 74 78 Respiratory Rate 20 18 18 Blood Pressure 107/68 Pulse Oximetry 93 Oxygen Delivery 07/11/23 16:00 07/11/23 19:15 07/11/23 19:16 Temperature 97.4 F L Pulse Rate 87 75 78 Respiratory Rate 20 20 20 Blood Pressure 115/74 Pulse Oximetry 94 99 Oxygen Delivery Room Air 07/11/23 19:22 07/11/23 19:52 07/11/23 22:37 Temperature 97.2 F L Pulse Rate 76 85 85 Respiratory Rate 18 26 H Blood Pressure 136/80 Pulse Oximetry 93 Oxygen Delivery 07/11/23 20:00 07/11/23 23:51 07/12/23 00:00 Temperature Pulse Rate 80 80 Respiratory Rate 20 20 Blood Pressure Pulse Oximetry Oxygen Delivery Room Air 07/12/23 00:00 07/12/23 04:00 07/12/23 07:51 Temperature 96.8 F L 97.8 F Pulse Rate 80 80 Respiratory Rate 24 H 24 H Blood Pressure 121/74 116/70 Pulse Oximetry 95 94 94 Oxygen Delivery Room Air 07/12/23 07:51 07/12/23 08:09 07/12/23 07:54 Temperature 97.3 F L Pulse Rate 80 80 74 Respiratory Rate 20 20 18 Blood Pressure 121/75 Pulse Oximetry 97 Oxygen Delivery 07/12/23 08:00 07/12/23 11:21 07/12/23 11:41 Temperature Pulse Rate 81 81 Respiratory Rate 20 20 Blood Pressure Pulse Oximetry 97 Oxygen Delivery Room Air Intake/Output Intake/Output: Intake & Output 07/09/23 07/10/23 07/11/23 07/12/23 23:59 23:59 23:59 23:59 Intake Total 2540 930 240 Balance 2540 930 240 Meds/Results Medications: Active Medications Generic Name Dose Route Start Last Admin Trade Name Freq PRN Reason Stop Dose Admin Acetaminophen 650 mg 07/09/23 14:02 07/11/23 17:32 Acetaminophen 325 Mg Tablet PO 650 mg Q4H PRN Administration Mild Pain (1-3) or Fever Hydrocodone Bitart/Acetaminophen 1 tab 07/09/23 14:02 Hydrocodone/Acetaminophen (*Crx) 5-325 Mg Tablet PO Q4H PRN Pain Rated 4-6 Albuterol 2.5 mg 07/10/23 16:00 07/12/23 11:18 Albuterol Sulfate Neb 2.5 Mg/3 Ml Inh INHALATION 2.5 mg Q
[2023-07-12] MEDS: BENZONATATE 100 MG CAPSULE 200 MG PO ×2 (12:08→16:47)
[2023-07-12] MEDS: HYDROcodone/acetaminophen (*CRX) 5-325 MG TABLET 1 TAB PO (16:54)
[2023-07-12] MEDS: REMDESIVIR 100 MG/NS 250 ML 100 MG/250 ML BAG 250 MG IVPB (21:04)
[2023-07-12] MEDS: CHOLECALCIFEROL 1,000 UNITS TABLET 5000 UNITS PO (21:08)
[2023-07-12] MEDS: LORATADINE 10 MG TABLET PO (21:08)
[2023-07-12] MEDS: ATORVASTATIN 20 MG TABLET PO (21:08)
[2023-07-12] MEDS: PROPRANOLOL HCL 60 MG CAPSULE CR PO (21:08)
[2023-07-12] MEDS: amLODIPine BESYLATE 5 MG TABLET PO (21:08)
[2023-07-12] MEDS: buPROPion HCL XL (24 HR) 150 MG TABCR PO (21:08)
[2023-07-12] MEDS: DULoxetine HCL 60 MG CAPSULE.DR PO (21:08)
[2023-07-13] VITALS (17 sets, daily range): BP systolic 107–132; BP diastolic 63–85; PULSE 75–86; RESP 16–24; TEMP 35.9–36.6; O2SAT 92–97
[2023-07-13] MEDS: ALBUTEROL SULFATE NEB 2.5 MG/3 ML INH INHALATION ×5 (04:35→23:12)
[2023-07-13] MEDS: IPRATROPIUM BR 0.02% INH SOLN 0.5 MG/2.5 ML VIAL INHALATION ×5 (04:35→23:12)
[2023-07-13] MEDS: HYDROcodone/acetaminophen (*CRX) 5-325 MG TABLET 1 TAB PO ×2 (06:12→17:52)
[2023-07-13] MEDS: guaiFENesin 600 MG/DEXTROMETHORPHAN 30 MG SR TAB 12 HR 1 TAB PO ×2 (09:02→20:20)
[2023-07-13] MEDS: BENZONATATE 100 MG CAPSULE 200 MG PO ×3 (09:02→17:53)
[2023-07-13] MEDS: HEPARIN SODIUM 5,000 UNITS/ML VIAL 5000 UNITS SUB-Q ×2 (09:02→20:20)
[2023-07-13] MEDS: PANTOPRAZOLE 40 MG TABLET PO (09:02)
[2023-07-13] MEDS: MULTIVITAMINS THERAPEUTIC TAB (*BKC) 1 TABLET PO (09:02)
[2023-07-13] MEDS: NICOTINE (*PBKC) 14 MG PATCH 1 PATCH TRANSDERM (09:08)
[2023-07-13] MEDS: LOSARTAN POTASSIUM 100 MG TABLET PO (09:08)
--- NOTE | 2023-07-13 13:20 | PM.IMPN ---
Progress Note: A&P Assessment and Plan (1) COVID: Code(s): U07.1 - COVID-19 Status: Acute Assessment and Plan: Patient presented with fatigue, shortness of breath, malaise and dry hacking cough. tested positive for COVID on - 07/09 CXR: ?Minimal airspace opacities of the left midlung zone, likely atelectasis. Remdesivir 200 mg IVPB x1 then 100 mg x4 for 5 total doses. Add dexamethasone 6 mg x10 days or until d/c. Patient on nebulizers at home, would benefit from Duo nebs - albuterol/Atrovent Q4H scheduled Tessalon Perles prn Mucinex scheduled (2) Hypoxia: Code(s): R09.02 - Hypoxemia Status: Acute Assessment and Plan: Likely secondary to COVID Continue supplemental oxygen, wean as as tolerated. Nebulizers - Atrovent and albuterol q.4 (3) Hypertension: Qualifiers: Hypertension type: essential hypertension Qualified Code(s): I10 - Essential (primary) hypertension Code(s): I10 - Essential (primary) hypertension Status: Acute Assessment and Plan: Continue losartan, amlodipine, propranolol. Monitor BP. Plan Nicotine patch PRN Subjective Date/time seen: 07/13/23 13:20 Interval history: Patient does feel improved today. Will get last dose of remdesivir later tonight. Lungs are still we seen but is much improved. Suspect she will be able to discharge tomorrow after receiving full therapy of remdesivir. Her cough is improved although still present. She is beginning to cough up mucus. She denies any chest pain, nausea, vomiting and fever. Shortness of breath markedly improved. Patient requesting no more labs be drawn. Exam Narrative: GENERAL: Comfortable, no acute distress HENMT: moist mucous membranes EYES: EOM intact b/l NECK: no lymphadenopathy RESPIRATORY: diffuse expiratory wheezes CARDIO: RRR GI: soft, nontender, bowel sounds present SKIN: no rashes EXTREMITIES: no edema, redness or tenderness Objective Data Vital Signs Vital Signs: Vital Signs - 24 hr 07/12/23 15:45 07/12/23 16:03 07/12/23 16:00 Temperature 98.0 F Pulse Rate 90 84 73 Respiratory Rate 20 20 16 Blood Pressure 132/73 Pulse Oximetry 94 Oxygen Delivery 07/12/23 19:42 07/12/23 19:59 07/12/23 21:08 Temperature Pulse Rate 88 87 87 Respiratory Rate 18 18 Blood Pressure Pulse Oximetry Oxygen Delivery 07/12/23 20:00 07/12/23 20:00 07/12/23 23:14 Temperature 98.5 F Pulse Rate 75 82 Respiratory Rate 20 18 Blood Pressure 107/63 Pulse Oximetry 96 Oxygen Delivery Room Air 07/12/23 23:30 07/13/23 00:00 07/13/23 04:35 Temperature 97.3 F L Pulse Rate 83 77 78 Respiratory Rate 18 24 H 18 Blood Pressure 123/77 Pulse Oximetry 97 Oxygen Delivery 07/13/23 05:01 07/13/23 04:00 07/13/23 07:58 Temperature 97.5 F L 96.6 F L Pulse Rate 80 77 75 Respiratory Rate 18 18 16 Blood Pressure 107/66 115/85 Pulse Oximetry 92 96 Oxygen Delivery 07/13/23 07:55 07/13/23 07:55 07/13/23 08:17 Temperature Pulse Rate 78 86 Respiratory Rate 18 18 Blood Pressure Pulse Oximetry 97 Oxygen Delivery Room Air 07/13/23 08:00 07/13/23 12:00 07/13/23 12:47 Temperature 96.9 F L Pulse Rate 86 81 80 Respiratory Rate 18 18 18 Blood Pressure 132/69 Pulse Oximetry 96 94 Oxygen Delivery Room Air Intake/Output Intake/Output: Intake & Output 07/10/23 07/11/23 07/12/23 07/13/23 23:59 23:59 23:59 23:59 Intake Total 2540 930 980 640 Balance 2540 930 980 640 Meds/Results Medications: Active Medications Generic Name Dose Route Start Last Admin Trade Name Freq PRN Reason Stop Dose Admin Acetaminophen 650 mg 07/09/23 14:02 07/11/23 17:32 Acetaminophen 325 Mg Tablet PO 650 mg Q4H PRN Administration Mild Pain (1-3) or Fever Hydrocodone Bitart/Acetaminophen 1 tab 07/09/23 14:02 07/13/23 06:12 Hydrocodone/Acetaminophen (*Crx)
[2023-07-13] MEDS: REMDESIVIR 100 MG/NS 250 ML 100 MG/250 ML BAG 250 MG IVPB (20:17)
[2023-07-13] MEDS: buPROPion HCL XL (24 HR) 150 MG TABCR PO (20:20)
[2023-07-13] MEDS: DULoxetine HCL 60 MG CAPSULE.DR PO (20:20)
[2023-07-13] MEDS: LORATADINE 10 MG TABLET PO (20:20)
[2023-07-13] MEDS: PROPRANOLOL HCL 60 MG CAPSULE CR PO (20:20)
[2023-07-13] MEDS: CHOLECALCIFEROL 1,000 UNITS TABLET 5000 UNITS PO (20:20)
[2023-07-13] MEDS: amLODIPine BESYLATE 5 MG TABLET PO (20:20)
[2023-07-13] MEDS: ATORVASTATIN 20 MG TABLET PO (20:21)
[2023-07-14] VITALS (8 sets, daily range): BP systolic 96–128; BP diastolic 63–86; PULSE 75–87; RESP 16–24; TEMP 35.8–36.6; O2SAT 94–97
[2023-07-14] MEDS: ALBUTEROL SULFATE NEB 2.5 MG/3 ML INH INHALATION ×2 (06:58→11:00)
[2023-07-14] MEDS: IPRATROPIUM BR 0.02% INH SOLN 0.5 MG/2.5 ML VIAL INHALATION ×2 (06:58→11:00)
[2023-07-14 07:56] LABS: Hematocrit 38.2 % (37.0-47.0); Hemoglobin 11.6 g/dL (12.0-15.0); Mean Corpuscular HGB Conc 30.4 g/dl (32-36); Mean Corpuscular Hemoglobin 20.8 pg (26-34); Mean Corpuscular Volume 68.5 fl (80-100); Mean Platelet Volume 9.1 fl (7.4-10.4); Platelet Count Result 354 k/mm3 (150-375); Red Blood Count 5.58 M/mm3 (4.2-5.4); Red Cell Distribution Width 18.5 % (11.5-14.5); White Blood Count 11.6 K/mm3 (4.5-10.0)
[2023-07-14 08:10] LABS: Anion Gap 10 mmol/L (8-16); Blood Urea Nitrogen 28 mg/dL (7-17); Calcium 8.9 mg/dL (8.4-10.2); Carbon Dioxide 26 mmol/L (22-30); Chloride 101 mmol/L (98-107); Estimated CRCL calculation 71 ml/min; Estimated Glomerular Filt Rate > 60; Glucose 90 mg/dL (65-110); Potassium 4.7 mmol/L (3.4-5.0); Sodium 137 mmol/L (137-145)
[2023-07-14] MEDS: NICOTINE (*PBKC) 14 MG PATCH 1 PATCH TRANSDERM (09:11)
[2023-07-14] MEDS: HEPARIN SODIUM 5,000 UNITS/ML VIAL 5000 UNITS SUB-Q (09:12)
[2023-07-14] MEDS: BENZONATATE 100 MG CAPSULE 200 MG PO ×2 (09:12→12:11)
[2023-07-14] MEDS: BENZOCAINE/MENTHOL (*BKC) 18 EA LOZENGE 1 LOZENGE PO (09:12)
[2023-07-14] MEDS: PANTOPRAZOLE 40 MG TABLET PO (09:13)
[2023-07-14] MEDS: guaiFENesin 600 MG/DEXTROMETHORPHAN 30 MG SR TAB 12 HR 1 TAB PO (09:13)
[2023-07-14] MEDS: MULTIVITAMINS THERAPEUTIC TAB (*BKC) 1 TABLET PO (09:13)
[2023-07-14] MEDS: LOSARTAN POTASSIUM 100 MG TABLET PO (09:13)
--- NOTE | 2023-07-14 12:04 | PM.DS ---
DS: Admitting Diagnosis Discharge Date 07/14/23 Admitting Diagnosis COVID-19 DS: Discharge Diagnosis Discharge Diagnosis (1) COVID: Code(s): U07.1 - COVID-19 Status: Acute (2) Hypoxia: Code(s): R09.02 - Hypoxemia Status: Acute (3) Hypertension: Qualifiers: Hypertension type: essential hypertension Qualified Code(s): I10 - Essential (primary) hypertension Code(s): I10 - Essential (primary) hypertension Status: Acute DS: Summary Hospital Course Hospital Course: This is a 68-year-old female with a past medical history of COPD, current smoker, essential tremor, hypertension, hyperlipidemia, RA and thalassemia the present to the ED on 07/09/2023 due to shortness of breath and cough. Patient had been experiencing worsening shortness of breath and cough 2 days prior to contagion although for the past several weeks she has been treated for COPD exacerbation with both prednisone and a Z-Jasvir. After discussing with patient it sounds like she could of had bronchitis or other viral infection leading up to this admission. She had tested for COVID several times prior to admission and they were all negative. In the ED she tested positive for COVID. She still currently smokes half a pack per day for approximately 30 years. She did seem interested in smoking cessation in the information was given to her. she was put on 2 L of oxygen in the ED but soon came off of her oxygen once in her hospital room. Patient maintain O2 saturation above 90 during her hospital stay. She was started on remdesivir and was given 5 doses of this over the course of 5 days. She was also started on dexamethasone and received this while in the hospital. DuoNebs were given q.4 hours. Patient did improve with this treat although she still had lingering cough. This was treated with Tessalon Perles and Mucinex. Patient still has some mild wheezing on discharge day but no longer requiring any oxygen supplementation and she is feeling much better. Encouraged nebulizer treatments at home. I am confident that the patient will do well at home with rest and as needed inhaler treatments. labs and vital signs are stable and she is medically cleared for discharge at this time. Time Spent with Patient Time attestation: Total time spent providing and/or coordinating discharge services: Exam Narrative: GENERAL: Comfortable, no acute distress HENMT: moist mucous membranes EYES: EOM intact b/l NECK: no lymphadenopathy RESPIRATORY: diffuse expiratory wheezes - improving CARDIO: RRR GI: soft, nontender, bowel sounds present SKIN: no rashes EXTREMITIES: no edema, redness or tenderness DS: Data Data Completed and Pending Labs on day of discharge: Labs from last 24 hours 07/14/23 07:48 WBC 11.6 H RBC 5.58 H Hgb 11.6 L Hct 38.2 MCV 68.5 L MCH 20.8 L MCHC 30.4 L RDW 18.5 H Plt Count 354 MPV 9.1 Sodium 137 Potassium 4.7 Chloride 101 Carbon Dioxide 26 Anion Gap 10 BUN 28 H D Creatinine 0.70 Estim Creat Clear Calc 71 Estimated GFR > 60 Glucose 90 Calcium 8.9 Discharge Plan Discharge Attending physician on discharge: Yogesh Chatterjee Discharging Clinician: Shauna Doe Patient Disposition: Home, Self-Care Activity: as tolerated Diet: regular Discharge Instructions: Take all medications as prescribed even if feeling better Remember to stay quarantined until 07/19/23 Wear a mask in public, and stay away from large crowds Eat well balanced meals and stay hydrated Keep active, but do not over do it No running marathons, riding your bike, or any other activity that is not mild If you notice that you are short of breath sit down and take a break Check your SPO2 periodically, if it is low cough and rest, check again in about 15 minutes, if you remain low, you should come back to the hospital If you should experience any chest pain, shortness of breath, temps >10
[2023-07-14] MEDS: HYDROcodone/acetaminophen (*CRX) 5-325 MG TABLET 1 TAB PO (12:13)
== END 2023-07-14 12:50 | disposition home or self-care (01) | DRG 179 ==
LOC: ANHED 11:05 → ANH3MEDSUR 17:12
PROVIDERS: Student in an Organized Health Care Education/Training Program; Admitting Provider Internal Medicine; Emergency Provider Emergency Medicine; PCP Nurse Practitioner; Visit Provider Internal Medicine Critical Care Medicine
DX: U07.1 COVID-19 (principal); J44.9 Chronic obstructive pulmonary disease, unspecified; R09.02 Hypoxemia; I10 Essential (primary) hypertension; D56.3 Thalassemia minor; E78.5 Hyperlipidemia, unspecified; K21.9 Gastro-esophageal reflux disease without esophagitis; M19.011 Primary osteoarthritis, right shoulder; M06.042 Rheumatoid arthritis without rheumatoid factor, left hand; M06.041 Rheumatoid arthritis without rheumatoid factor, right hand; R73.03 Prediabetes; G25.0 Essential tremor; F17.210 Nicotine dependence, cigarettes, uncomplicated; F32.A Depression, unspecified; F41.9 Anxiety disorder, unspecified
CPT/HCPCS: 36415; 71045; 80048; 80053; 80076; 85025; 85027; 85610; 87637; 94640; 96374; 99285; A9270; G0378; J0248; J1100; J1644

== ENCOUNTER 2023-11-17 13:00 | Outpatient (RCR) | payer MEDICARE, OTHER, SELFPAY ==
--- NOTE | 2023-11-09 12:47 | OPREHPOC ---
Outpatient Therapy Plan of Care This is a Multidisciplinary Plan of Care that may contain components documented by all disciplines (PT, OT, and ST.) PT Problem 1 PT Problem #1 Knowledge Deficit PT Goal 1 Goal Pt to be IND with issued HEP Target Visit 6 PT Problem 2 PT Problem #2 Impaired Functional Mobil PT Goal 1 Goal Pt to demonstrate floor to stand transfer without external support Target Visit 6 PT Goal 2 Goal Pt to demonstrate functional lift and carry with 20lb from ground level. Target Visit 6 PT Problem 3 PT Problem #3 Impaired Balance PT Goal 1 Goal Pt to improve single leg stance to 10s rupal Target Visit 6 PT Goal 2 Goal Pt to ambulate stairs without requiring UE support Target Visit 6
--- NOTE | 2023-11-09 12:47 | PTOPEVAL1 ---
Assessment and note entered by Lorrie John, PT, DPT Evaluation Information Assessment Status Evaluation Diagnosis general weakness Onset 6 months Subjective Information Pt reports mid May she experienced an exacerbation of her COPD, she was given a couple of rounds of medication without relief. She ended up getting Covid and was hospitalized for 5 day, stress, sinus infection, and UTI. She states she was basically bed ridden from May to mid Oct. She states now she has extreme weakness in both of her legs since all of this started. She states she feels unsteady on her feet, unsure on stairs, and like her balance has been off since all this started. She states prior to May she was IND, felt great, babysat her young children multiple times a week. She states just in the last couple of weeks she has been getting her energy back. Reported Pain Level Pain Score 0: Self Report Assessment PT Clinical Summary Seda presents to therapy today for her initial evaluation with a diagnosis of generalized weakness, reportedly from prolonged illness. Today she demonstrates mild LE weakness, mild dynamic balance deficits, and decreased functional mobility. She reports difficulty with normal daily tasks like stairs, getting up/down from the ground, and daily chores. Skilled therapy services are indicated for high level balance and strength challenges, to improve endurance, and to return to PLOF. Plan of Care Interventions Gait Training,Neuro Re-education,Patient/Caregiver Educati,Therapeutic Activities,Therapeutic Exercise PT Services Indicated Yes Treatment Frequency and 1x/wk for 6 visits Duration These treatments will address the objective and functional deficits as defined above. The patient will be advanced safely and appropriately in order for the patient to progress towards his/her prior level of function. Additional exercises will be introduced and as well as a comprehensive home exercise program upon discharge, if needed, ?to ensure carryover of functional gains achieved in the clinic. This treatment plan has been reviewed and agreement upon by the patient.
--- NOTE | 2023-12-14 09:42 | PTOPDC ---
Assessment and note entered by Lorrie John, PT, DPT Evaluation Information Assessment Status Discharge - Pt Not Presen Diagnosis general weakness Onset 6 months Subjective Information Pt called and cancelled appointment this date d/t being ill. Called and spoke with pt, states she is doing better and does not need to continue therapy. Assessment PT Clinical Summary Seda completed 2 visits of skilled therapy from 07/24 to 11/17/23. She will be discharged at this time per pt request.
== END 2023-12-14 15:01 | disposition home or self-care (01) ==
LOC: ANHGOSHPT 13:00
PROVIDERS: PCP Nurse Practitioner; Visit Provider Nurse Practitioner
DX: R29.898 Other symptoms and signs involving the musculoskeletal system (principal)
CPT/HCPCS: 97110; 97112; 97161; 97530

== ENCOUNTER 2024-09-27 15:17 | Outpatient (CLI) | payer MEDICARE, OTHER, SELFPAY ==
--- NOTE | ~2024-09-27 | MM_ITS ---
EXAMINATION: MM screening [facility] BI w brandon HISTORY: Screening TECHNIQUE: Craniocaudal and mediolateral oblique 3-D tomosynthesis images were obtained and synthetic 2-D images were generated. CAD analysis was submitted and interpreted. COMPARISON: Comparison to multiple prior studies sequentially, with oldest reviewed study dated 04/29. BREAST PARENCHYMAL COMPOSITION: Not dense: There are scattered areas of fibroglandular density. FINDINGS: There is no evidence of suspicious mass, calcification, or architectural distortion to sugg est malignancy in either breast. There has been no suspicious interval change. IMPRESSION: 1. No mammographic evidence of malignancy. 2. Recommend routine screening mammography in one year. BI-RADS Category 1: Negative Reviewed, dictated and finalized at location A. OR NET SOFTWARE ENGINEER
== END 2024-09-27 15:18 | disposition home or self-care (01) ==
LOC: MICIMG 15:18
PROVIDERS: PCP Nurse Practitioner; Visit Provider Nurse Practitioner
DX: Z12.31 Encounter for screening mammogram for malignant neoplasm of breast (principal)
CPT/HCPCS: 77063; 77067

== ENCOUNTER 2025-07-17 09:42 | Outpatient (CLI) | payer MEDICARE, SELFPAY ==
--- NOTE | ~2025-07-17 | CT_ITS ---
EXAMINATION:CT lung screening DATE: 07/17/2025 09:57 INDICATION: Screening TECHNIQUE: Computed tomography (CT) of the chest was performed without intravenous contrast. The dose-length product (DLP) was 97.74 mGy-cm. COMPARISON: February 15, 2020 FINDINGS: 3 mm right minor fissure nodule, as well as right middle lobe subpleural nodule on image 56 series 4 unchanged. No other nodules or masses seen. No focal acute process. Heart and great vessels normal in size. Bones appear intact. No acute process seen in the visualized portions of the upper chest, extrathoracic soft tissues or bony thorax. IMPRESSION: 1. Stable right-sided lung nodules. Lung RADS 2. Recommend follow-up low-dose lung cancer screening chest CT in 12 months. 2. Other findings as above. Reviewed, dictated and finalized at location A. [employer] IMPRESSION: 1. Stable right-sided lung nodules. Lung RADS 2. Recommend follow-up low-dose l jim cancer screening chest CT in 12 months. 2. Other findings as above.
== END 2025-07-17 09:43 | disposition home or self-care (01) ==
PROVIDERS: PCP Nurse Practitioner Family; Visit Provider Nurse Practitioner
DX: Z12.2 Encounter for screening for malignant neoplasm of respiratory organs (principal); R91.8 Other nonspecific abnormal finding of lung field; Z87.891 Personal history of nicotine dependence
CPT/HCPCS: 71271